=== PATIENT | female | born 1955 | race Caucasian/White ===

== ENCOUNTER 2020-02-01 15:48 | Inpatient (IN) ==
[2020-02-01 18:24] LABS: Adenovirus Not Detected (Not Detect); Bordetella Pertussis Not Detected (Not Detect); Chlamydophila pneumoniae Not Detected (Not Detect); Coronavirus 229E Not Detected (Not Detect); Coronavirus HKU1 Not Detected (Not Detect); Coronavirus NL63 Not Detected (Not Detect); Coronavirus OC43 Not Detected (Not Detect); Human Metapneumovirus Not Detected (Not Detect); Human Rhinovirus/Enterovirus Not Detected (Not Detect); Influenza A Subtype 2009 H1 Not Detected (Not Detect); Influenza B Not Detected (Not Detect); Mycoplasma pneumoniae Not Detected (Not Detect); Parainfluenza Virus 1 Not Detected (Not Detect); Parainfluenza Virus 2 Not Detected (Not Detect); Parainfluenza Virus 3 Not Detected (Not Detect); Parainfluenza Virus 4 Not Detected (Not Detect); Respiratory Syncytial Virus Not Detected (Not Detect); SARS-CoV-2 Not Detected (Not Detect)
[2020-02-01] MEDS ORDERED: Naloxone 0.4 MG/ML INJ IVP PRN (19:18)
[2020-02-01] MEDS ORDERED: Ringers Solution, Lactated 1,000 ML IVC SCH (19:30)
[2020-02-01] MEDS ORDERED: D5% in Water 1,000 ML IVC SCH (19:30)
[2020-02-01 19:58] LABS: Red Cell Distribution Width 14.7 % (11.5-14.5)
[2020-02-01 19:59] LABS: Hematocrit 50.1 % (35.3-44.9); Immature Platelets 7.3 % (1.1-6.1); Mean Corpuscular HGB Conc 29.9 g/dL (31.6-35.5); Mean Corpuscular Hemoglobin 30.9 pg (28.0-33.3); Mean Corpuscular Volume 103.1 fL (83.0-100.0); Mean Platelet Volume 13.5 fL (9.4-12.4); Red Blood Count 4.86 M/mcL (3.82-4.97)
[2020-02-01 20:01] LABS: INR 1.4
[2020-02-01 20:01] LABS: ABG Base Excess 3 mEq/L (-2 to 3); ABG HCO3 30 mEq/L (21-27); ABG Oxygen Saturation 99 % (95-98); ABG PCO2 49 mmHg (35-45); ABG PH 7.39 pH Units (7.32-7.45); ABG PO2 119 mmHg (85-104); ABG TCO2 31 mEq/L (20-26)
[2020-02-01] MEDS: Lactulose Oral Soln 20 GM/30 ML UDC PO SCH (20:12)
[2020-02-01 20:24] LABS: Albumin 2.8 g/dL (3.5-5.7); Albumin/Globulin Ratio 0.8 (1.1-2.2); Bilirubin,Total 1.2 mg/dL (0.3-1.0); Globulin 3.5 g/dL (2.4-3.5); Magnesium 2.8 mg/dL (1.6-2.6); Potassium 3.9 mEq/L (3.5-5.1); Total Protein 6.3 g/dL (6.4-8.9)
[2020-02-01 20:32] LABS: Thyroid Stimulating Hormone 0.562 mcIU/mL (0.340-5.600)
[2020-02-01] MEDS ORDERED: Pantoprazole 40 MG VIAL IVP ONE (20:50)
[2020-02-01] MEDS ORDERED: D5% in Water 1,000 ML IVC PRN (20:59)
[2020-02-01] MEDS ORDERED: Dextrose Gel 15 GM/37.5 ML TUBE PO PRN ×2 (20:59)
[2020-02-01] MEDS ORDERED: *HR* Dextrose 50 % in Water (Vial) 50 ML VIAL IVP PRN (20:59)
[2020-02-01] MEDS: *HR* Heparin 5,000 UNIT/ML VIAL SQ SCH (21:02)
[2020-02-01 21:39] LABS: Troponin I 0.11 ng/mL (< 0.04)
[2020-02-01 21:43] LABS: Sodium, Urine 37.6 mEq/L
[2020-02-01 23:34] LABS: Albumin 2.7 g/dL (3.5-5.7); Albumin/Globulin Ratio 0.8 (1.1-2.2); Bilirubin,Total 1.3 mg/dL (0.3-1.0); Calcium 9.1 mg/dL (8.6-10.3); Globulin 3.4 g/dL (2.4-3.5); Potassium 3.9 mEq/L (3.5-5.1); Total Protein 6.1 g/dL (6.4-8.9)
[2020-02-01] MEDS: Piperacillin/Tazobactam 3.375 GM in 0.9 % Sodium Chloride Mini Bag 100 ML IVPB SCH (23:55)
[2020-02-01] MEDS: Insulin LISPRO 300 UNITS/3 ML VIAL SQ SCH (23:56)
[2020-02-02 01:40] LABS: VBG Ionized Calcium 1.27 mmol/L (1.15-1.35)
[2020-02-02 01:59] LABS: Potassium 3.7 mEq/L (3.5-5.1)
[2020-02-02 02:46] LABS: ABG Base Excess 2 mEq/L (-2 to 3); ABG HCO3 27 mEq/L (21-27); ABG Oxygen Saturation 97 % (95-98); ABG PCO2 43 mmHg (35-45); ABG PH 7.41 pH Units (7.32-7.45); ABG PO2 91 mmHg (85-104); ABG TCO2 28 mEq/L (20-26)
[2020-02-02 04:09] LABS: Mean Platelet Volume 13.9 fL (9.4-12.4)
[2020-02-02 04:11] LABS: Hemoglobin 14.3 g/dL (11.5-15.4); Immature Platelets 6.8 % (1.1-6.1); Mean Corpuscular HGB Conc 29.8 g/dL (31.6-35.5); Mean Corpuscular Hemoglobin 30.8 pg (28.0-33.3); Mean Corpuscular Volume 103.2 fL (83.0-100.0); Monocytes # 0.5 K/mcL (0.0-1.3); Red Blood Count 4.65 M/mcL (3.82-4.97); Red Cell Distribution Width 14.9 % (11.5-14.5)
[2020-02-02 04:13] LABS: Platelet Count 39 K/mcL (140-400)
[2020-02-02 04:31] LABS: Albumin 2.6 g/dL (3.5-5.7); Albumin/Globulin Ratio 0.8 (1.1-2.2); Bilirubin,Total 1.4 mg/dL (0.3-1.0); Globulin 3.2 g/dL (2.4-3.5); Magnesium 2.8 mg/dL (1.6-2.6); Potassium 3.5 mEq/L (3.5-5.1); Total Protein 5.8 g/dL (6.4-8.9)
[2020-02-02 04:40] LABS: Lymphocytes # 1.6 K/mcL (0.6-4.6); Neutrophils # 6.8 K/mcL (1.6-8.9); Platelet Estimate Marked Decrease (Normal)
[2020-02-02] MEDS: Insulin LISPRO 300 UNITS/3 ML VIAL SQ SCH ×3 (05:37→18:16)
[2020-02-02] MEDS: *HR* Heparin 5,000 UNIT/ML VIAL SQ SCH (05:39)
[2020-02-02] MEDS ORDERED: Doxycycline 100 MG in 0.9 % Sodium Chloride Mini Bag 100 ML IVPB SCH (06:00)
[2020-02-02] MEDS ORDERED: Perflutren Lipid Microsphere 1.3 ML in 0.9 % Sodium Chloride 8.7 ML IVP PRN (06:34)
[2020-02-02 06:54] LABS: Potassium 3.4 mEq/L (3.5-5.1); Troponin I 0.09 ng/mL (< 0.04)
[2020-02-02] MEDS: Ringers Solution, Lactated 1,000 ML IVC SCH (06:57)
[2020-02-02] MEDS ORDERED: Insulin LISPRO 300 UNITS/3 ML VIAL SQ SCH (07:44)
[2020-02-02] MEDS: Piperacillin/Tazobactam 3.375 GM in 0.9 % Sodium Chloride Mini Bag 100 ML IVPB SCH ×3 (08:14→23:34)
[2020-02-02] MEDS: Doxycycline 100 MG in 0.9 % Sodium Chloride Mini Bag 100 ML IVPB SCH ×2 (08:15→20:12)
[2020-02-02 10:31] LABS: Calcium 9.2 mg/dL (8.6-10.3); Potassium 3.4 mEq/L (3.5-5.1)
[2020-02-02] MEDS ORDERED: Potassium Chloride Elixir 20 MEQ/15 ML UDC PO ONE (11:30)
[2020-02-02] MEDS: Insulin DETEMIR 100 UNIT/ML X5UNITS SQ SCH (11:48)
[2020-02-02 14:24] LABS: Calcium 8.5 mg/dL (8.6-10.3); Potassium 3.9 mEq/L (3.5-5.1)
[2020-02-02] MEDS ORDERED: D5% in 0.45% NACL 1,000 ML IVC SCH (15:00)
[2020-02-02] MEDS ORDERED: D5% in Water 1,000 ML IVC SCH (15:00)
[2020-02-02 16:45] LABS: Calcium 8.7 mg/dL (8.6-10.3); Potassium 3.7 mEq/L (3.5-5.1)
[2020-02-02 19:46] LABS: Calcium 8.6 mg/dL (8.6-10.3); Potassium 3.7 mEq/L (3.5-5.1)
[2020-02-02] MEDS: Lactulose Oral Soln 20 GM/30 ML UDC PO SCH (20:09)
[2020-02-02 22:26] LABS: BUN/Creatinine Ratio 56 (6-26); Blood Urea Nitrogen 61 mg/dL (8-23); Calcium 8.2 mg/dL (8.6-10.3); Carbon Dioxide 27 mEq/L (23-29); Chloride 127 mEq/L (98-107); Glucose 118 mg/dL (70-105); Osmolality,Calculated 346 (280-300); Potassium 3.4 mEq/L (3.5-5.1); Sodium 159 mEq/L (136-145); eGFR For African Americans > 60 (> 60); eGFR For Non-African Americans 51 (> 60)
[2020-02-02] MEDS: Potassium Chloride 40 MEQ/200 ML BAG IVPB PRN (23:35)
[2020-02-03] MEDS: D5% in Water 1,000 ML IVC SCH ×2 (00:22)
[2020-02-03] MEDS: Insulin LISPRO 300 UNITS/3 ML VIAL SQ SCH ×4 (00:23→18:00)
[2020-02-03 01:42] LABS: Eosinophils % 0.7 %; Lymphocytes % 12.8 %; Mean Corpuscular Hemoglobin 30.6 pg (28.0-33.3); Mean Platelet Volume 14.1 fL (9.4-12.4); Monocytes % 5.7 %
[2020-02-03 01:44] LABS: Eosinophils # 0.1 K/mcL (0.0-0.6); Hematocrit 41.7 % (35.3-44.9); Hemoglobin 12.4 g/dL (11.5-15.4); Immature Granulocytes % 0.6 % (0-4); Immature Platelets 9.7 % (1.1-6.1); Lymphocytes # 0.9 K/mcL (0.6-4.6); Mean Corpuscular HGB Conc 29.7 g/dL (31.6-35.5); Monocytes # 0.4 K/mcL (0.0-1.3); Neutrophils # 5.5 K/mcL (1.6-8.9); Red Blood Count 4.05 M/mcL (3.82-4.97); Red Cell Distribution Width 14.5 % (11.5-14.5); Segmented Neutrophils % 80.2 %; White Blood Count 6.8 K/mcL (4.3-11.1)
[2020-02-03 01:54] LABS: BUN/Creatinine Ratio 59 (6-26); Blood Urea Nitrogen 56 mg/dL (8-23); Calcium 8.2 mg/dL (8.6-10.3); Carbon Dioxide 26 mEq/L (23-29); Chloride 125 mEq/L (98-107); Glucose 128 mg/dL (70-105); Osmolality,Calculated 337 (280-300); Potassium 4.2 mEq/L (3.5-5.1); Sodium 155 mEq/L (136-145); eGFR For African Americans > 60 (> 60); eGFR For Non-African Americans 59 (> 60)
[2020-02-03 02:03] LABS: Platelet Count 29 K/mcL (140-400)
[2020-02-03] MEDS ORDERED: D5% in 0.45% NACL 1,000 ML IVC SCH (02:30)
[2020-02-03] MEDS ORDERED: D5% in Water 1,000 ML IVC SCH (02:45)
[2020-02-03 02:54] LABS: Platelet Estimate Marked Decrease (Normal)
[2020-02-03 04:30] LABS: Eosinophils % 0.9 %; Hematocrit 40.7 % (35.3-44.9); Red Cell Distribution Width 14.6 % (11.5-14.5); Segmented Neutrophils % 78.7 %
[2020-02-03 04:32] LABS: Eosinophils # 0.1 K/mcL (0.0-0.6); Hemoglobin 12.5 g/dL (11.5-15.4); Immature Granulocytes % 0.3 % (0-4); Immature Platelets 8.5 % (1.1-6.1); Lymphocytes % 14.4 %; Mean Corpuscular HGB Conc 30.7 g/dL (31.6-35.5); Mean Corpuscular Hemoglobin 32.1 pg (28.0-33.3); Mean Corpuscular Volume 104.4 fL (83.0-100.0); Mean Platelet Volume 13.7 fL (9.4-12.4); Monocytes # 0.4 K/mcL (0.0-1.3); Monocytes % 5.7 %; Neutrophils # 5.2 K/mcL (1.6-8.9); White Blood Count 6.6 K/mcL (4.3-11.1)
[2020-02-03 04:44] LABS: BUN/Creatinine Ratio 59 (6-26); Blood Urea Nitrogen 53 mg/dL (8-23); Calcium 8.3 mg/dL (8.6-10.3); Carbon Dioxide 25 mEq/L (23-29); Chloride 126 mEq/L (98-107); Glucose 118 mg/dL (70-105); Osmolality,Calculated 337 (280-300); Potassium 3.6 mEq/L (3.5-5.1); Sodium 156 mEq/L (136-145); eGFR For African Americans > 60 (> 60); eGFR For Non-African Americans > 60 (> 60)
[2020-02-03 04:50] LABS: Platelet Count 30 K/mcL (140-400)
[2020-02-03] MEDS: Potassium Chloride 40 MEQ/200 ML BAG IVPB PRN ×2 (05:07→15:16)
[2020-02-03 05:58] LABS: Platelet Estimate Marked Decrease (Normal)
[2020-02-03] MEDS: Piperacillin/Tazobactam 3.375 GM in 0.9 % Sodium Chloride Mini Bag 100 ML IVPB SCH ×3 (10:05→23:52)
[2020-02-03] MEDS: Aspirin 81 MG TAB.CHEW PO SCH (10:06)
[2020-02-03] MEDS: Lactulose Oral Soln 20 GM/30 ML UDC PO SCH ×2 (10:06→19:53)
[2020-02-03] MEDS: Insulin DETEMIR 100 UNIT/ML X5UNITS SQ SCH (10:06)
[2020-02-03] MEDS: Doxycycline 100 MG in 0.9 % Sodium Chloride Mini Bag 100 ML IVPB SCH ×2 (10:06→19:55)
[2020-02-03 11:24] LABS: BUN/Creatinine Ratio 53 (6-26); Blood Urea Nitrogen 43 mg/dL (8-23); Calcium 8.4 mg/dL (8.6-10.3); Carbon Dioxide 26 mEq/L (23-29); Chloride 123 mEq/L (98-107); Glucose 139 mg/dL (70-105); Osmolality,Calculated 327 (280-300); Potassium 3.9 mEq/L (3.5-5.1); Sodium 152 mEq/L (136-145); eGFR For African Americans > 60 (> 60); eGFR For Non-African Americans > 60 (> 60)
[2020-02-03 14:46] LABS: BUN/Creatinine Ratio 57 (6-26); Blood Urea Nitrogen 39 mg/dL (8-23); Calcium 7.4 mg/dL (8.6-10.3); Carbon Dioxide 20 mEq/L (23-29); Chloride 126 mEq/L (98-107); Glucose 89 mg/dL (70-105); Osmolality,Calculated 325 (280-300); Potassium 3.4 mEq/L (3.5-5.1); Sodium 153 mEq/L (136-145); eGFR For African Americans > 60 (> 60); eGFR For Non-African Americans > 60 (> 60)
[2020-02-03 17:15] LABS: BUN/Creatinine Ratio 51 (6-26); Blood Urea Nitrogen 39 mg/dL (8-23); Carbon Dioxide 24 mEq/L (23-29); Chloride 123 mEq/L (98-107); Glucose 85 mg/dL (70-105); Osmolality,Calculated 323 (280-300); Potassium 3.9 mEq/L (3.5-5.1); Sodium 152 mEq/L (136-145); eGFR For African Americans > 60 (> 60); eGFR For Non-African Americans > 60 (> 60)
[2020-02-03] MEDS: *HR* HYDROcodone/Acet 5/325 mg TABLET GTUBE PRN ×2 (18:03→23:51)
[2020-02-03 18:14] LABS: Albumin 2.3 g/dL (3.5-5.7)
[2020-02-03 19:40] LABS: BUN/Creatinine Ratio 52 (6-26); Blood Urea Nitrogen 38 mg/dL (8-23); Carbon Dioxide 22 mEq/L (23-29); Chloride 122 mEq/L (98-107); Glucose 103 mg/dL (70-105); Osmolality,Calculated 319 (280-300); Potassium 4.2 mEq/L (3.5-5.1); Sodium 150 mEq/L (136-145); eGFR For African Americans > 60 (> 60); eGFR For Non-African Americans > 60 (> 60)
[2020-02-03 22:45] LABS: BUN/Creatinine Ratio 51 (6-26); Blood Urea Nitrogen 38 mg/dL (8-23); Calcium 8.2 mg/dL (8.6-10.3); Carbon Dioxide 22 mEq/L (23-29); Chloride 120 mEq/L (98-107); Glucose 150 mg/dL (70-105); Osmolality,Calculated 318 (280-300); Potassium 4.2 mEq/L (3.5-5.1); Sodium 148 mEq/L (136-145); eGFR For African Americans > 60 (> 60); eGFR For Non-African Americans > 60 (> 60)
[2020-02-04] MEDS: Insulin LISPRO 300 UNITS/3 ML VIAL SQ SCH ×5 (00:07→23:35)
[2020-02-04 01:36] LABS: BUN/Creatinine Ratio 54 (6-26); Blood Urea Nitrogen 38 mg/dL (8-23); Carbon Dioxide 22 mEq/L (23-29); Chloride 120 mEq/L (98-107); Glucose 175 mg/dL (70-105); Osmolality,Calculated 317 (280-300); Sodium 147 mEq/L (136-145); eGFR For African Americans > 60 (> 60); eGFR For Non-African Americans > 60 (> 60)
[2020-02-04 04:25] LABS: Mean Corpuscular Volume 101.2 fL (83.0-100.0)
[2020-02-04 04:26] LABS: Hematocrit 42.6 % (35.3-44.9); Hemoglobin 12.9 g/dL (11.5-15.4); Immature Platelets 13.5 % (1.1-6.1); Mean Corpuscular HGB Conc 30.3 g/dL (31.6-35.5); Mean Corpuscular Hemoglobin 30.6 pg (28.0-33.3); Mean Platelet Volume 14.2 fL (9.4-12.4); Red Blood Count 4.21 M/mcL (3.82-4.97); White Blood Count 7.5 K/mcL (4.3-11.1)
[2020-02-04 04:31] LABS: Platelet Count 29 K/mcL (140-400)
[2020-02-04 04:38] LABS: BUN/Creatinine Ratio 47 (6-26); Blood Urea Nitrogen 38 mg/dL (8-23); Calcium 8.1 mg/dL (8.6-10.3); Carbon Dioxide 23 mEq/L (23-29); Chloride 119 mEq/L (98-107); Glucose 262 mg/dL (70-105); Osmolality,Calculated 322 (280-300); Potassium 4.3 mEq/L (3.5-5.1); Sodium 147 mEq/L (136-145); eGFR For African Americans > 60 (> 60); eGFR For Non-African Americans > 60 (> 60)
[2020-02-04 04:59] LABS: Eosinophils # 0.5 K/mcL (0.0-0.6); Lymphocytes # 0.6 K/mcL (0.6-4.6); Monocytes # 0.2 K/mcL (0.0-1.3); Neutrophils # 6.3 K/mcL (1.6-8.9); Platelet Estimate Marked Decrease (Normal)
[2020-02-04] MEDS: Piperacillin/Tazobactam 3.375 GM in 0.9 % Sodium Chloride Mini Bag 100 ML IVPB SCH (08:20)
[2020-02-04] MEDS: Aspirin 81 MG TAB.CHEW PO SCH (08:20)
[2020-02-04] MEDS: Lactulose Oral Soln 20 GM/30 ML UDC PO SCH ×2 (08:21→20:47)
[2020-02-04] MEDS: Doxycycline 100 MG in 0.9 % Sodium Chloride Mini Bag 100 ML IVPB SCH ×2 (08:23→21:18)
[2020-02-04] MEDS: Insulin DETEMIR 100 UNIT/ML X5UNITS SQ SCH (08:24)
[2020-02-04 08:49] LABS: BUN/Creatinine Ratio 50 (6-26); Blood Urea Nitrogen 35 mg/dL (8-23); Calcium 8.2 mg/dL (8.6-10.3); Carbon Dioxide 23 mEq/L (23-29); Chloride 118 mEq/L (98-107); Glucose 292 mg/dL (70-105); Osmolality,Calculated 321 (280-300); Potassium 3.9 mEq/L (3.5-5.1); Sodium 146 mEq/L (136-145); eGFR For African Americans > 60 (> 60); eGFR For Non-African Americans > 60 (> 60)
[2020-02-04] MEDS: Acetylcysteine 10% 2 ML INHSOL IH SCH ×3 (16:44→23:51)
[2020-02-04] MEDS: Cefepime HCl 2,000 MG in 0.9 % Sodium Chloride Mini Bag 100 ML IVPB SCH ×2 (17:36→23:25)
[2020-02-04] MEDS: MetroNIDAZOLE 500 MG/100 ML 500 MG/100 ML BAG IVPB SCH ×2 (17:38→23:25)
[2020-02-04] MEDS: Ipratropium/Albuterol Neb 3 ML IH PRN ×2 (20:36→23:51)
[2020-02-05 01:18] LABS: BUN/Creatinine Ratio 47 (6-26); Blood Urea Nitrogen 30 mg/dL (8-23); Calcium 7.7 mg/dL (8.6-10.3); Carbon Dioxide 21 mEq/L (23-29); Chloride 121 mEq/L (98-107); Glucose 221 mg/dL (70-105); Osmolality,Calculated 317 (280-300); Potassium 3.5 mEq/L (3.5-5.1); Sodium 147 mEq/L (136-145); eGFR For African Americans > 60 (> 60); eGFR For Non-African Americans > 60 (> 60)
[2020-02-05] MEDS: Ipratropium/Albuterol Neb 3 ML IH PRN ×6 (03:59→23:49)
[2020-02-05] MEDS: Acetylcysteine 10% 2 ML INHSOL IH SCH ×6 (04:00→23:49)
[2020-02-05] MEDS: Insulin LISPRO 300 UNITS/3 ML VIAL SQ SCH ×3 (06:04→18:16)
[2020-02-05 06:19] LABS: Basophils % 0.2 %; Hemoglobin 12.1 g/dL (11.5-15.4); Mean Corpuscular Volume 102.5 fL (83.0-100.0)
[2020-02-05 06:21] LABS: Eosinophils # 0.1 K/mcL (0.0-0.6); Eosinophils % 1.8 %; Hematocrit 40.8 % (35.3-44.9); Immature Granulocytes % 0.3 % (0-4); Immature Platelets 13.2 % (1.1-6.1); Lymphocytes # 0.6 K/mcL (0.6-4.6); Lymphocytes % 10.6 %; Mean Corpuscular HGB Conc 29.7 g/dL (31.6-35.5); Mean Corpuscular Hemoglobin 30.4 pg (28.0-33.3); Mean Platelet Volume 14.6 fL (9.4-12.4); Monocytes # 0.4 K/mcL (0.0-1.3); Monocytes % 6.7 %; Neutrophils # 4.8 K/mcL (1.6-8.9); Nucleated Red Blood Cells 0.3 /100 WBC (0); Red Blood Count 3.98 M/mcL (3.82-4.97); Red Cell Distribution Width 13.9 % (11.5-14.5); Segmented Neutrophils % 80.4 %
[2020-02-05 06:24] LABS: Platelet Count 24 K/mcL (140-400)
[2020-02-05 06:40] LABS: Alanine Aminotransferase 39 Units/L (7-52); Albumin 2.2 g/dL (3.5-5.7); Albumin/Globulin Ratio 0.7 (1.1-2.2); Alkaline Phosphatase 114 Units/L (34-104); Aspartate Amino Transferase 27 Units/L (13-39); BUN/Creatinine Ratio 49 (6-26); Bilirubin,Total 0.8 mg/dL (0.3-1.0); Blood Urea Nitrogen 32 mg/dL (8-23); Calcium 8.1 mg/dL (8.6-10.3); Carbon Dioxide 21 mEq/L (23-29); Chloride 119 mEq/L (98-107); Globulin 3.1 g/dL (2.4-3.5); Glucose 245 mg/dL (70-105); Osmolality,Calculated 319 (280-300); Potassium 3.8 mEq/L (3.5-5.1); Sodium 147 mEq/L (136-145); Total Protein 5.3 g/dL (6.4-8.9); eGFR For African Americans > 60 (> 60); eGFR For Non-African Americans > 60 (> 60)
[2020-02-05] MEDS: Insulin DETEMIR 100 UNIT/ML X5UNITS SQ SCH (08:54)
[2020-02-05] MEDS: Lactulose Oral Soln 20 GM/30 ML UDC PO SCH ×2 (08:54→20:05)
[2020-02-05] MEDS: MetroNIDAZOLE 500 MG/100 ML 500 MG/100 ML BAG IVPB SCH ×2 (08:55→16:17)
[2020-02-05] MEDS: Cefepime HCl 2,000 MG in 0.9 % Sodium Chloride Mini Bag 100 ML IVPB SCH (08:55)
[2020-02-05] MEDS: Potassium Chloride 40 MEQ/200 ML BAG IVPB PRN ×2 (09:58→11:06)
[2020-02-05] MEDS: Doxycycline 100 MG in 0.9 % Sodium Chloride Mini Bag 100 ML IVPB SCH ×2 (10:00→20:39)
[2020-02-05 10:10] LABS: Magnesium 1.9 mg/dL (1.6-2.6); Phosphorous 2.2 mg/dL (2.7-4.5)
[2020-02-05 10:22] LABS: VBG Ionized Calcium 1.16 mmol/L (1.15-1.35)
[2020-02-05] MEDS ORDERED: Ondansetron 4 MG/2 ML VIAL IVP PRN (10:40)
[2020-02-05] MEDS ORDERED: 0.9 % Sodium Chloride 250 ML ONE (12:36)
[2020-02-05] MEDS: Cefepime HCl 2,000 MG in Water for inj. (sterile) 20 ML IVP SCH (16:17)
[2020-02-05 17:12] LABS: Magnesium 2.1 mg/dL (1.6-2.6); Phosphorous 2.4 mg/dL (2.7-4.5); Potassium 4.3 mEq/L (3.5-5.1)
[2020-02-05] MEDS: Ringers Solution, Lactated 1,000 ML IVC SCH (22:56)
[2020-02-06] MEDS: MetroNIDAZOLE 500 MG/100 ML 500 MG/100 ML BAG IVPB SCH ×2 (00:39→07:32)
[2020-02-06] MEDS: Cefepime HCl 2,000 MG in Water for inj. (sterile) 20 ML IVP SCH ×3 (00:39→15:32)
[2020-02-06] MEDS: Insulin LISPRO 300 UNITS/3 ML VIAL SQ SCH ×4 (00:48→18:00)
[2020-02-06 03:09] LABS: Alanine Aminotransferase 36 Units/L (7-52); Albumin 2.3 g/dL (3.5-5.7); Albumin/Globulin Ratio 0.7 (1.1-2.2); Alkaline Phosphatase 113 Units/L (34-104); Aspartate Amino Transferase 23 Units/L (13-39); BUN/Creatinine Ratio 45 (6-26); Bilirubin,Total 0.8 mg/dL (0.3-1.0); Blood Urea Nitrogen 30 mg/dL (8-23); Calcium 8.2 mg/dL (8.6-10.3); Carbon Dioxide 19 mEq/L (23-29); Chloride 120 mEq/L (98-107); Globulin 3.1 g/dL (2.4-3.5); Glucose 240 mg/dL (70-105); Osmolality,Calculated 316 (280-300); Sodium 146 mEq/L (136-145); Total Protein 5.4 g/dL (6.4-8.9); eGFR For African Americans > 60 (> 60); eGFR For Non-African Americans > 60 (> 60)
[2020-02-06] MEDS: Ipratropium/Albuterol Neb 3 ML IH PRN ×6 (03:37→23:09)
[2020-02-06] MEDS: Acetylcysteine 10% 2 ML INHSOL IH SCH ×6 (03:37→23:09)
[2020-02-06] MEDS: Insulin DETEMIR 100 UNIT/ML X5UNITS SQ SCH (09:30)
[2020-02-06] MEDS: Lactulose Oral Soln 20 GM/30 ML UDC PO SCH ×4 (09:30→19:48)
[2020-02-06] MEDS: Doxycycline 100 MG in 0.9 % Sodium Chloride Mini Bag 100 ML IVPB SCH ×2 (10:03→20:41)
[2020-02-06 15:07] LABS: Hematocrit 35.9 % (35.3-44.9); Hemoglobin 11.4 g/dL (11.5-15.4); Immature Platelets 15.3 % (1.1-6.1); Mean Corpuscular HGB Conc 31.8 g/dL (31.6-35.5); Mean Corpuscular Hemoglobin 31.4 pg (28.0-33.3); Mean Corpuscular Volume 98.9 fL (83.0-100.0); Monocytes # 0.4 K/mcL (0.0-1.3); Nucleated Red Blood Cells 0.3 /100 WBC (0); Red Blood Count 3.63 M/mcL (3.82-4.97); Red Cell Distribution Width 14.3 % (11.5-14.5); White Blood Count 7.3 K/mcL (4.3-11.1)
[2020-02-06 15:40] LABS: Platelet Count 34 K/mcL (140-400)
[2020-02-06 15:45] LABS: Neutrophils # 5.8 K/mcL (1.6-8.9); Platelet Estimate Marked Decrease (Normal)
[2020-02-06 15:46] LABS: Macrocytosis Present (Not Present); Polychromasia 1+ (Not Present)
[2020-02-07] MEDS: Insulin LISPRO 300 UNITS/3 ML VIAL SQ SCH ×4 (01:18→18:29)
[2020-02-07] MEDS: Cefepime HCl 2,000 MG in Water for inj. (sterile) 20 ML IVP SCH ×4 (01:18→23:49)
[2020-02-07] MEDS: Acetylcysteine 10% 2 ML INHSOL IH SCH ×2 (03:53→07:52)
[2020-02-07] MEDS: Ipratropium/Albuterol Neb 3 ML IH PRN ×3 (03:53→11:06)
[2020-02-07 04:55] LABS: Hematocrit 35.5 % (35.3-44.9); Mean Corpuscular Volume 99.2 fL (83.0-100.0); Red Blood Count 3.58 M/mcL (3.82-4.97)
[2020-02-07 04:56] LABS: Immature Platelets 14.3 % (1.1-6.1); Mean Corpuscular Hemoglobin 30.7 pg (28.0-33.3); Mean Platelet Volume 14.1 fL (9.4-12.4); Red Cell Distribution Width 14.5 % (11.5-14.5); White Blood Count 7.1 K/mcL (4.3-11.1)
[2020-02-07 05:12] LABS: BUN/Creatinine Ratio 50 (6-26); Blood Urea Nitrogen 36 mg/dL (8-23); Calcium 8.6 mg/dL (8.6-10.3); Carbon Dioxide 20 mEq/L (23-29); Chloride 122 mEq/L (98-107); Glucose 339 mg/dL (70-105); Magnesium 2.2 mg/dL (1.6-2.6); Osmolality,Calculated 328 (280-300); Phosphorous 2.2 mg/dL (2.7-4.5); Potassium 3.8 mEq/L (3.5-5.1); Sodium 148 mEq/L (136-145); eGFR For African Americans > 60 (> 60); eGFR For Non-African Americans > 60 (> 60)
[2020-02-07] MEDS: Lactulose Oral Soln 20 GM/30 ML UDC PO SCH ×3 (08:49→19:54)
[2020-02-07] MEDS: Doxycycline 100 MG in 0.9 % Sodium Chloride Mini Bag 100 ML IVPB SCH ×2 (08:49→19:55)
[2020-02-07] MEDS ORDERED: Insulin DETEMIR 100 UNIT/ML X5UNITS SQ SCH (09:00)
[2020-02-07] MEDS: Insulin DETEMIR 100 UNIT/ML X5UNITS SQ SCH (19:54)
[2020-02-08] MEDS: Insulin LISPRO 300 UNITS/3 ML VIAL SQ SCH ×4 (01:21→18:00)
[2020-02-08 07:08] LABS: Hemoglobin 11.7 g/dL (11.5-15.4)
[2020-02-08 07:10] LABS: Hematocrit 37.8 % (35.3-44.9); Immature Platelets 16.4 % (1.1-6.1); Mean Corpuscular Hemoglobin 30.3 pg (28.0-33.3); Mean Corpuscular Volume 97.9 fL (83.0-100.0); Red Blood Count 3.86 M/mcL (3.82-4.97); Red Cell Distribution Width 14.8 % (11.5-14.5); White Blood Count 9.2 K/mcL (4.3-11.1)
[2020-02-08 07:12] LABS: Platelet Count 42 K/mcL (140-400)
[2020-02-08 07:35] LABS: Alanine Aminotransferase 31 Units/L (7-52); Albumin 2.3 g/dL (3.5-5.7); Albumin/Globulin Ratio 0.6 (1.1-2.2); Alkaline Phosphatase 114 Units/L (34-104); Aspartate Amino Transferase 28 Units/L (13-39); BUN/Creatinine Ratio 55 (6-26); Bilirubin,Total 0.8 mg/dL (0.3-1.0); Blood Urea Nitrogen 35 mg/dL (8-23); Calcium 9.2 mg/dL (8.6-10.3); Carbon Dioxide 22 mEq/L (23-29); Chloride 123 mEq/L (98-107); Globulin 3.7 g/dL (2.4-3.5); Glucose 85 mg/dL (70-105); Magnesium 1.9 mg/dL (1.6-2.6); Osmolality,Calculated 319 (280-300); Potassium 3.3 mEq/L (3.5-5.1); Sodium 151 mEq/L (136-145); eGFR For African Americans > 60 (> 60); eGFR For Non-African Americans > 60 (> 60)
[2020-02-08] MEDS: Cefepime HCl 2,000 MG in Water for inj. (sterile) 20 ML IVP SCH (09:12)
[2020-02-08] MEDS: Lactulose Oral Soln 20 GM/30 ML UDC PO SCH (09:14)
[2020-02-08] MEDS: Doxycycline 100 MG in 0.9 % Sodium Chloride Mini Bag 100 ML IVPB SCH (09:17)
[2020-02-08] MEDS: Insulin DETEMIR 100 UNIT/ML X5UNITS SQ SCH (09:18)
[2020-02-08] MEDS: D5% in Water 1,000 ML IVC SCH (11:53)
[2020-02-08] MEDS ORDERED: Potassium Chloride Elixir 20 MEQ/15 ML UDC PO ONE (12:28)
[2020-02-08 23:37] LABS: BUN/Creatinine Ratio 60 (6-26); Blood Urea Nitrogen 38 mg/dL (8-23); Carbon Dioxide 21 mEq/L (23-29); Chloride 120 mEq/L (98-107); Glucose 230 mg/dL (70-105); Osmolality,Calculated 320 (280-300); Potassium 3.3 mEq/L (3.5-5.1); Sodium 147 mEq/L (136-145); eGFR For African Americans > 60 (> 60); eGFR For Non-African Americans > 60 (> 60)
[2020-02-09] MEDS: Lactulose Oral Soln 20 GM/30 ML UDC PO SCH ×2 (00:06→10:36)
[2020-02-09] MEDS: *HR* HYDROcodone/Acet 5/325 mg TABLET GTUBE PRN (00:06)
[2020-02-09] MEDS: Insulin DETEMIR 100 UNIT/ML X5UNITS SQ SCH ×2 (00:09→10:37)
[2020-02-09] MEDS: Insulin LISPRO 300 UNITS/3 ML VIAL SQ SCH ×2 (00:09→05:18)
[2020-02-09] MEDS: D5% in Water 1,000 ML IVC SCH (02:52)
[2020-02-09 03:12] LABS: Hematocrit 32.8 % (35.3-44.9); Hemoglobin 10.3 g/dL (11.5-15.4); Immature Platelets 14.3 % (1.1-6.1); Mean Corpuscular HGB Conc 31.4 g/dL (31.6-35.5); Mean Corpuscular Hemoglobin 30.8 pg (28.0-33.3); Mean Corpuscular Volume 98.2 fL (83.0-100.0); Red Blood Count 3.34 M/mcL (3.82-4.97); Red Cell Distribution Width 14.8 % (11.5-14.5); White Blood Count 6.7 K/mcL (4.3-11.1)
[2020-02-09 03:13] LABS: Platelet Count 33 K/mcL (140-400)
[2020-02-09 03:32] LABS: BUN/Creatinine Ratio 54 (6-26); Blood Urea Nitrogen 39 mg/dL (8-23); Calcium 8.8 mg/dL (8.6-10.3); Carbon Dioxide 23 mEq/L (23-29); Chloride 120 mEq/L (98-107); Glucose 272 mg/dL (70-105); Osmolality,Calculated 323 (280-300); Potassium 3.2 mEq/L (3.5-5.1); Sodium 147 mEq/L (136-145); eGFR For African Americans > 60 (> 60); eGFR For Non-African Americans > 60 (> 60)
[2020-02-09] MEDS ORDERED: Potassium Chloride Elixir 20 MEQ/15 ML UDC PO ONE (08:43)
[2020-02-09 10:18] VITALS: BP 99/61
[2020-02-09 10:32] LABS: INR 1.5; Prothrombin Time 16.7 Seconds (9.4-12.1)
[2020-02-09 10:45] LABS: Albumin/Globulin Ratio 0.5 (1.1-2.2); Bilirubin,Direct 0.2 mg/dL (0.0-0.2); Bilirubin,Indirect 0.4 mg/dL (0.0-1.0); Bilirubin,Total 0.6 mg/dL (0.3-1.0); Globulin 3.7 g/dL (2.4-3.5); Total Protein 5.7 g/dL (6.4-8.9)
== END 2020-02-09 16:39 | DRG 426 ==
LOC: CDU → ICNU 18:26 → SUATTDRO 19:33 → 2NNU 02-05 12:33 → 3ANU 02-08 14:35
PROVIDERS: ADMIT Internal Medicine; ATTEND Internal Medicine